=== PATIENT | male | born 1955 | race Caucasian/White ===

== ENCOUNTER → 2016-08-14 | Outpatient (CLI) | payer BC ==
--- NOTE | 2016-08-14 12:58 | MR ---
EXAMINATION TYPE: MR lumbar spine wo con DATE OF EXAM: 08/14/2016 12:51 PM COMPARISON: NONE HISTORY: Lumbago with sciatica, unspecified side TECHNIQUE: Multiplanar, multisequence images of the lumbar spine were acquired. L1-L2: Normal disc appearance without desiccation. No herniation, protrusion or disc bulging. No ca nal stenosis is present. Foramina are patent bilaterally. L2-L3: Normal disc appearance without desiccation. No herniation, protrusion or disc bulging. No ca nal stenosis is present. Foramina are patent bilaterally. L3-L4: Mild decreased signal ossified compatible degenerative disc disease. Mild posterior disc bulge . No evidence for herniation protrusion or central stenosis. Facet joint arthropathy resulting in mil d right greater than left foraminal encroachment. L4-L5: Moderate disc desiccation. 6.7 mm anterolisthesis L4 and L5 secondary to facet joint arthropat hy. Posterior disc bulge effaces the ventral thecal sac. There is right lateral recess stenosis and r ight foraminal encroachment. No definite central stenosis at this time. L5-S1: Moderate to severe disc desiccation with vacuum disc. Grade 1 anterolisthesis L5 on S1 of 3 mm . Moderate broad-based posterocentral disc herniation. Mild effacement ventral thecal sac. Bilateral lateral recess stenosis. No evidence for central stenosis. Bilateral foraminal encroachment left grea ter than right. Severe facet joint arthropathy. Lumbar segments are intact. No paraspinal masses are identified. Conus medullaris has a normal appe arance. IMPRESSION: 1. Multilevel degenerative disc disease. 2. Multilevel disc bulging with varying degrees of bilateral recess stenosis and foraminal encroachme nt. 3. Grade 1 anterolisthesis L4 and L5 and L5 on S1.
== END | disposition home or self-care (01) ==
LOC: RADMRIMAIN 12:05
PROVIDERS: ATTEND Internal Medicine
DX: M48.07 Spinal stenosis, lumbosacral region (principal); M51.27 Other intervertebral disc displacement, lumbosacral region; M43.17 Spondylolisthesis, lumbosacral region; M51.36 Other intervertebral disc degeneration, lumbar region
CPT/HCPCS: 72148

== ENCOUNTER 2016-08-17 07:09 | Emergency (ER) | payer BC ==
[2016-08-17] MEDS ORDERED: DIAZEPAM 5 MG/ML 2 ML SYRINGE IVP STA (07:57)
[2016-08-17] MEDS ORDERED: MORPHINE SULFATE 4 MG/ML SYRINGE IVP STA (07:57)
[2016-08-17] MEDS ORDERED: KETOROLAC 30 MG/ML 1 ML VIAL IVP STA (07:57)
[2016-08-17] MEDS ORDERED: SODIUM CHLORIDE 0.9% 1,000 ML IV STA (07:57)
--- NOTE | 2016-08-17 08:49 | ED ---
General Adult HPI - General Chief complaint: Extremity Injury, Upper Stated complaint: left shoulder injury from fall Time Seen by Provider: 08/17/16 07:27 Source: patient, EMS, RN notes reviewed, old records reviewed Mode of arrival: EMS Limitations: no limitations - History of Present Illness Initial comments: This is a 61-year-old male here status post fall. Patient does have history of significant back disease and lumbar stenosis. Currently a process of getting that treated further. Patient did not S back. Patient got out of bed and is usually does is looking for his walker as he is weak on his feet and fell hyperextending his left arm causing left shoulder pain. Patient continues to have left shoulder pain with deformity. Did not has had no loss of consciousness denies any other complaints. Patient is able to bear weight - Related Data Home Medications Medication Instructions Recorded Confirmed [place]-3 Fatty Acids/Fish Oil [Fish 1 cap PO DAILY 08/17/16 08/17/16 Oil 1,000 mg Softgel] Rosuvastatin [Crestor] 20 mg PO DAILY 08/17/16 08/17/16 Valsartan [Diovan] 160 mg PO DAILY 08/17/16 08/17/16 Vitamin B Complex 1 cap PO DAILY 08/17/16 08/17/16 Allergies Allergy/AdvReac Type Severity Reaction Status Date / Time No Known Allergies Allergy Verified 08/17/16 08:19 Review of Systems ROS Statement: Those systems with pertinent positive or pertinent negative responses have been documented in the HPI. ROS Other: All systems not noted in ROS Statement are negative. Past Medical History Past Medical History: Hyperlipidemia, Hypertension, Musculoskeletal Disorder Additional Past Medical History / Comment(s): spinal stenosis in lumbar region. History of Any Multi-Drug Resistant Organisms: None Reported Additional Past Surgical History / Comment(s): 2 pins in left hip from childhood accident. Past Psychological History: No Psychological Hx Reported Smoking Status: Current every day smoker Past Alcohol Use History: Occasional Past Drug Use History: None Reported General Exam Limitations: no limitations General appearance: alert, in no apparent distress Head exam: Present: atraumatic, normocephalic, normal inspection Eye exam: Present: normal appearance, PERRL, EOMI. Absent: scleral icterus, conjunctival injection, periorbital swelling ENT exam: Present: normal exam, mucous membranes moist Neck exam: Present: normal inspection. Absent: tenderness, meningismus, lymphadenopathy Respiratory exam: Present: normal lung sounds bilaterally. Absent: respiratory distress, wheezes, rales, rhonchi, stridor Cardiovascular Exam: Present: regular rate, normal rhythm, normal heart sounds. Absent: systolic murmur, diastolic murmur, rubs, gallop, clicks GI/Abdominal exam: Present: soft, normal bowel sounds. Absent: distended, tenderness, guarding, rebound, rigid Extremities exam: Present: normal inspection, full ROM, normal capillary refill , other (Left shoulder deformity likely dislocation). Absent: tenderness, pedal edema, joint swelling, calf tenderness Back exam: Present: normal inspection Neurological exam: Present: alert, oriented X3, CN II-XII intact Psychiatric exam: Present: normal affect, normal mood Skin exam: Present: warm, dry, intact, normal color. Absent: rash Course Vital Signs 08/17/16 07:10 Temperature 97.7 F Pulse Rate 84 Respiratory 18 Rate Blood Pressure 139/75 O2 Sat by Pulse 94 L Oximetry - Reevaluation(s) Reevaluation #1: 08/17/16 08:49 Patient's symptoms are improved with pain control at this time, Reevaluation #2: 08/17/16 09:46 At this point patient is awake alert speaking and able to walk Procedures - Orthopedic Joint Reduction Joint #1 Consent Obtained: verbal consent Time Out Performed: Yes Side: left Joint Reduction Location: shoulder Analgesia: procedural sedation Shoulder Technique Used (if applicable): traction/counter-traction Post Reduction X-Ray Obtained: Yes Post Reduction X-Ray Results: reduced Splint Applied: Yes Patient Tolerated Procedure: well - Procedural Sedation Indications: fracture/dislocation reduction ASA Class: I Mallampati Airway Score: 1 Preparation: monitor worker applied, pulse oximeter, capnometry used Fentanyl: IV Fentanyl Dose: 80 Reversal Agents Used: Naloxone Complications: none Interventions: oxygen applied, airway repositioned, use of reversal agent, assist by BVM Patient Tolerated Procedure: well Medical Decision Making - Medical Decision Making 61 male here for evaluation of left shoulder dislocation status post fall, symptoms are improved shoulders relocated and patient can be discharged home - Radiology Data Radiology results: report reviewed (X-ray chest was negative for traumatic injury, x-ray left shoulder positive for dislocation, repeat x-ray shows relocation of left shoulder), image reviewed Disposition Clinical Impression: Dislocation of shoulder region, Dislocation of left shoulder joint, Fall Disposition: HOME SELF-CARE Condition: Good Instructions: Shoulder Dislocation (ED), Moderate Sedation (ED) Referrals: Key Diamond MD [Primary Care Provider] - 1-2 days
--- NOTE | 2016-08-17 08:54 | XR ---
EXAMINATION TYPE: XR pelvis AP view DATE OF EXAM: 08/17/2016 8:49 AM CLINICAL HISTORY: Fall injury with pelvic pain. TECHNIQUE: A single AP view of the pelvis is obtained. COMPARISON: None. FINDINGS: There is no acute fracture/dislocation evident in the pelvis. There are 3 fixating screws through healed fracture left proximal femur. Moderate asymmetric axial joint space loss in the right hip is present. There appears to be asymmetric narrowing of the right sacroiliac joint. Few scattered pelvic phleboliths are seen. IMPRESSION: There is no acute fracture or dislocation in the pelvis.
--- NOTE | 2016-08-17 08:56 | XR ---
EXAMINATION TYPE: XR shoulder complete LT DATE OF EXAM: 08/17/2016 8:49 AM CLINICAL HISTORY: Fall with left shoulder pain and obvious deformity. TECHNIQUE: 2 views of the left shoulder are attempted. COMPARISON: None. FINDINGS: There is inferior medial position of the humeral head relative to glenoid consistent with anterior dislocation. No acute fracture is seen. The acromioclavicular joint space appears within nor mal limits. There are old fracture deformities involving right posterior lateral sixth through eighth ribs. IMPRESSION: There is anterior right shoulder glenohumeral joint dislocation.
--- NOTE | 2016-08-17 08:57 | XR ---
EXAMINATION TYPE: XR chest 1V DATE OF EXAM: 08/17/2016 8:49 AM COMPARISON: NONE HISTORY: Chest pain after fall injury today. TECHNIQUE: Single frontal view of the chest is obtained. FINDINGS: Elevated left hemidiaphragm is seen. There is no focal air space opacity, pleural effusion, or pneumothorax seen. The cardiac silhouette size is within normal limits. There is ectatic thoraci c aorta. There are old left mid posterior rib fractures. There is anterior left shoulder dislocation. IMPRESSION: No acute cardiopulmonary process.
[2016-08-17] MEDS ORDERED: KETAMINE 10 MG/ML 20 ML VIAL IV ONE (09:10)
[2016-08-17] MEDS ORDERED: NALOXONE 0.4 MG/ML 1 ML VIAL IV STA ×2 (09:24→09:36)
[2016-08-17 10:40] VITALS: RESP 16
[2016-08-17 11:06] VITALS: BP 163/89; PULSE 89; TEMP 97.6
--- NOTE | 2016-08-17 11:13 | XR ---
EXAMINATION TYPE: XR shoulder limited LT DATE OF EXAM: 08/17/2016 10:56 AM COMPARISON: 08/17/2016 HISTORY: Reduction TECHNIQUE: One view are submitted. FINDINGS: Alignment is anatomic. Chronic appearing rib deformities noted. Diffuse osteopenia. No acute fracture . IMPRESSION: Post reduction views appears in near-anatomic alignment. Humeral head somewhat high ridin g correlate for rotator cuff tear.
== END 2016-08-17 11:20 | disposition home or self-care (01) ==
LOC: EC 07:09
DX: S43.005A Unspecified dislocation of left shoulder joint, initial encounter (principal); E78.5 Hyperlipidemia, unspecified; I10 Essential (primary) hypertension; F17.200 Nicotine dependence, unspecified, uncomplicated; W18.30XA Fall on same level, unspecified, initial encounter; M48.06 Spinal stenosis, lumbar region; Z79.899 Other long term (current) drug therapy
CPT/HCPCS: 99284; 23650; 96374; 96375; 96361 ×2; 93005; 71010; 72170; 73030; 73020; J2270; J2310; J3360; J1885

== ENCOUNTER → 2016-09-28 | Outpatient (CLI) | payer BC ==
--- NOTE | 2016-09-29 10:28 | MR ---
MR brain and cervical spine with and without contrast history: Pain tumor, idiopathic normal pressure hydrocephalus Multiplanar multisequence and postcontrast images obtained through the brain and cervical spine follo wing 12 cc MultiHance IV No comparisons Brain MRI with and without contrast: There is motion on the exam There is no restricted diffusion. There is no hemorrhage or hydrocephalus. Corpus callosum, pituitary , cervical medullary junction, cerebellopontine angles are unremarkable. No abnormal enhancement foll owing contrast menstruation. There is no hemorrhage or hydrocephalus. Inflammatory changes present wi thin the ethmoid air cells. The orbits show symmetric appearance. There are normal vascular flow void s, normal vascular enhancement. Scattered and confluent hyperintensities are present within the deep white matter on inversion recovery and T2-weighted sequences, there are approximately 40-50 lesions p resent. Mild cortical atrophy is present. IMPRESSION: Probable chronic small vessel ischemic changes, age related atrophy.. Motion on the exam. Follow-up as indicated. Cervical spine MRI with and without contrast: There is motion on the exam. Cervical vertebral bodies show preserved height, alignment, and bone mineral signal. Cervical vertebral bodies show preserved h eight and alignment. There is multilevel spondylosis with endplate discogenic marrow signal change. L oss of disc height and signal present at C3-4, C5-6 and C6-7. Cervical cord signal is difficult to as sess with certainty. C2-3: Right posterior paracentral extension of endplate disc complex causes foraminal encroachment, n o significant central stenosis. C3-4: Posterior extension of endplate disc complex, posterior right base disc bulge present causing a nterior mass effect on the cervical cord. Suspect there is bilateral foraminal encroachment. Moderate to severe spinal stenosis is suspected. C4-5: Posterior broad-based disc bulge causes mild anterior mass effect on the thecal sac. Right-side d foraminal encroachment present due to uncovertebral joint hypertrophy and facet arthropathy. C5-6: Posterior extension of endplate disc complex results in moderate canal stenosis. Foraminal encr oachment is present bilaterally. C6-7: Posterior extension of endplate disc complex causes anterior mass effect on the thecal sac, mil d spinal stenosis. Bilateral foraminal encroachment is present due to lateral extension endplate disc complex. C7-T1: Within normal limits No abnormal enhancement. IMPRESSION: Findings suggest severe spinal stenosis greatest at C3-4. Degenerative disc disease, disc herniation C3-4. There is motion on the exam. Limitations are present.
== END | disposition home or self-care (01) ==
LOC: RADMRIMAIN 16:55
PROVIDERS: ATTEND Psychiatry & Neurology Neurology
DX: M50.10 Cervical disc disorder with radiculopathy, unspecified cervical region (principal); M50.11 Cervical disc disorder with radiculopathy, high cervical region; D49.6 Neoplasm of unspecified behavior of brain; G91.2 (Idiopathic) normal pressure hydrocephalus
CPT/HCPCS: 70553; 72156; A9577

== ENCOUNTER → 2016-10-27 | Outpatient (CLI) | payer BC ==
--- NOTE | 2016-10-27 18:51 | MR ---
EXAMINATION TYPE: MR thoracic spine wo con DATE OF EXAM: 10/27/2016 COMPARISON: NONE HISTORY: 61-year-old male Ascending spinal disease and stenosis, mid back pain TECHNIQUE: Multiplanar, multisequence images of the thoracic spine were obtained without IV contrast. FINDINGS: Multilevel spinal stenoses within the cervical spine reported on 09/28/2016, severe at C3-C4 seen on th e counting series. Thoracic spine shows accentuated midthoracic kyphosis. Vertebral body heights are preserved. Alignmen t is maintained. No suspicious bone marrow replacement. Multilevel mild disc desiccation and mild anterior spondylosis throughout. At T10-T11, there is a central disc herniation. This may be a extrusion with small amount of inferior migration of disc material. This focally abuts and indents the ventral cord but does not cause signi ficant spinal canal stenosis. At T7-T8, there is a tiny left paracentral protrusion without spinal canal stenosis. No significant neuroforaminal stenoses are identified. Normal course and signal intensity of the thoracic cord. Conus medullaris is normal. No prevertebral or paravertebral soft tissue abnormality seen. IMPRESSION: 1. Mild multilevel degenerative disc disease. 2. Accentuated mid thoracic kyphosis with preserved alignment. 3. Central disc herniation at T10-T11, possible central extrusion with small amount of inferior migra tion. This abuts and focally indents the ventral cord but does not cause significant spinal canal arlen nosis or cord compression. 4. No significant neuroforaminal stenosis. 5. Significant canal stenosis within the cervical spine described on report of 09/28/2016.
== END | disposition home or self-care (01) ==
LOC: RADMRIMAIN 12:50
PROVIDERS: ATTEND Neurological Surgery
DX: M51.24 Other intervertebral disc displacement, thoracic region (principal); M51.34 Other intervertebral disc degeneration, thoracic region
CPT/HCPCS: 72146

== ENCOUNTER 2019-02-03 13:06 | Emergency (ER) | payer MEDICARE, BC ==
[2019-02-03 13:21] VITALS: RESP 18; TEMP 97.6
[2019-02-03] MEDS ORDERED: DIAZEPAM 5 MG/ML 2 ML INJ IVP STA (14:15)
[2019-02-03 15:12] LABS: ALT 13 U/L (21-72); AST 23 U/L (17-59); African American GFR (CKD) >90 (>60 ml/min/1.73 sqM); Albumin 4.1 g/dL (3.5-5.0); Alkaline Phosphatase 100 U/L (38-126); Anion Gap 6 mmol/L; Blood Urea Nitrogen 11 mg/dL (9-20); Calcium 9.7 mg/dL (8.4-10.2); Carbon Dioxide 33 mmol/L (22-30); Chloride 99 mmol/L (98-107); Glucose 95 mg/dL (74-99); Potassium 4.2 mmol/L (3.5-5.1); Sodium 138 mmol/L (137-145); Total Bilirubin 0.5 mg/dL (0.2-1.3)
[2019-02-03 15:18] LABS: Basophils % (A) 1 %; Eosinophils # (A) 0.1 k/uL (0-0.7); Eosinophils % (A) 1 %; HCT 43.4 % (39.0-53.0); HGB 14.6 gm/dL (13.0-17.5); Lymphocytes # (A) 1.2 k/uL (1.0-4.8); Lymphocytes % (A) 19 %; MCH 33.2 pg (25.0-35.0); MCHC 33.7 g/dL (31.0-37.0); MCV 98.4 fL (80.0-100.0); Mean Platelet Volume 6.4; Monocytes # (A) 0.4 k/uL (0-1.0); Monocytes % (A) 7 %; Neutrophils # (A) 4.4 k/uL (1.3-7.7); Neutrophils % (A) 71 %; Platelet Count 223 k/uL (150-450); RBC 4.41 m/uL (4.30-5.90); WBC 6.3 k/uL (3.8-10.6)
--- NOTE | 2019-02-03 15:44 | CT ---
EXAMINATION TYPE: CT lumbar spine wo con DATE OF EXAM: 02/03/2019 COMPARISON: Lumbar MRI 08/14/2016 HISTORY: Leg weakness and pain. Post pain pump placement and removal CT DLP: 686.2 mGycm Automated exposure control for dose reduction was used. An unenhanced CT of the lumbar spine was performed. Bone and soft tissue window settings are submitt ed as well as coronal and sagittal reconstructions. FINDINGS: Noncontrast exam. Lumbar vertebral bodies show stable height and alignment, there is an anterolisthes is grade 1 L4-5. Loss of disc height hasn't L3-4, L4-5, there is multilevel spondylosis. Bone mineral ization is reduced. Bladder wall thickening is indeterminate, may be due to outlet obstruction. Punct ate focus of possible air attenuation present at the level posterior to the L4-5 disc space likely re lated to patient's procedure. L1-L2: Minimal disc bulge causes only slight anterior mass effect on the thecal sac. No significant c entral stenosis or foraminal encroachment. L2-L3: Posterior broad-based disc bulge causes mild anterior mass effect on the thecal sac. No signif icant foraminal encroachment or central stenosis. L3-L4: Facet arthropathy with hypertrophy of the ligamentum flavum causes some posterior lateral mass effect on the thecal sac. Minimal disc bulge causes slight anterior mass effect on the thecal sac. N o significant central stenosis or foraminal encroachment. L4-L5: Listhesis is present with bilateral facet arthropathy, circumferential disc bulge encroaching upon the bilateral foramina. There is mild central stenosis present. L5-S1: Posterior disc bulge is present causing anterior mass effect on the thecal sac and likely the proximal S1 nerve roots. Circumferential extension endplate disc complex encroaches on the foramina l eft greater than right. Only mild central stenosis. IMPRESSION: No paraspinal masses are identified. Lumbar segments are intact. Degenerative disc disease, facet ar thropathy, spinal curvature, spondylolisthesis. Findings are similar to prior lumbar MRI. Small focus of low-attenuation may be procedural.
--- NOTE | 2019-02-03 16:21 | ED ---
General Adult HPI - General Chief complaint: Extremity Problem,Nontraumatic Stated complaint: Leg stiffness Time Seen by Provider: 02/03/19 13:15 Source: patient, EMS, RN notes reviewed Mode of arrival: EMS Limitations: no limitations - History of Present Illness Initial comments: This is a 63-year-old male who presents emergency Department because both of his legs are much stiffer than normal. Patient states yesterday he was in for a trial test of baclofen. Patient had intrathecal injection of baclofen and after he went home he was extremely stiff to the point where his neighbor headache area at the house and this morning he was unable to get up and ambulated at all. According to the family he's excessively stiff more so than his baseline. Patient is not many many significant pain. Patient denies any numbness. Patient states he's had no fevers he is just extremely stiff and unable to move on his own. Patient states he did miss his oral doses during the day of baclofen but he thought that was okay since he was being injected with baclofen. Patient states his movement currently is a little better than it was earlier this morning when he was unable to get out of bed even with assistance. - Related Data Home Medications Medication Instructions Recorded Confirmed Acetaminophen Tab [Tylenol Tab] 1,000 mg PO Q6H PRN 02/03/19 02/03/19 Baclofen [Lioresal] 20 mg PO QID 02/03/19 02/03/19 Ibuprofen [Motrin Ib] 400 mg PO Q6H PRN 02/03/19 02/03/19 Rosuvastatin [Crestor] 20 mg PO HS 02/03/19 02/03/19 Tamsulosin HCl [Flomax] 0.4 mg PO HS 02/03/19 02/03/19 Valsartan/Hydrochlorothiazide 1 tab PO DAILY 02/03/19 02/03/19 [Valsartan-Hctz 160-25 mg Tab] Previous Rx's Medication Instructions Recorded Diazepam [Valium] 5 mg PO BID #14 tab 02/03/19 Allergies Allergy/AdvReac Type Severity Reaction Status Date / Time No Known Allergies Allergy Verified 02/03/19 14:21 Review of Systems ROS Statement: Those systems with pertinent positive or pertinent negative responses have been documented in the HPI. ROS Other: All systems not noted in ROS Statement are negative. Past Medical History Past Medical History: Hyperlipidemia, Hypertension, Musculoskeletal Disorder Additional Past Medical History / Comment(s): spinal stenosis in lumbar region. History of Any Multi-Drug Resistant Organisms: None Reported Past Surgical History: Back Surgery Additional Past Surgical History / Comment(s): 2 pins in left hip from childhood accident. neck surgery Past Psychological History: No Psychological Hx Reported Smoking Status: Former smoker Past Alcohol Use History: Occasional Past Drug Use History: None Reported General Exam - General Exam Comments Initial Comments: GENERAL: Patient is well-developed and well-nourished. Patient is nontoxic and well- hydrated and is in no distress. ENT: Neck is soft and supple. No significant lymphadenopathy is noted. Oropharynx is clear. Moist mucous membranes. Neck has full range of motion without e liciting any pain. EYES: The sclera were anicteric and conjunctiva were pink and moist. Extraocular movements were intact and pupils were equal round and reactive to light. Eyelids were unremarkable. PULMONARY: Unlabored respirations. Good breath sounds bilaterally. No audible rales rhonchi or wheezing was noted. CARDIOVASCULAR: There is a regular rate and rhythm without any murmurs gallops or rubs. ABDOMEN: Soft and nontender with normal bowel sounds. SKIN: Skin is clear with no lesions or rashes and otherwise unremarkable. NEUROLOGIC: Patient is alert and oriented x3. Cranial nerves II through XII are grossly intact. Motor and sensory are also intact. Normal speech, volume and content. Symmetrical smile. MUSCULOSKELETAL: Both patient's legs are extremely stiff but he is able to bend them at about 45 at the knee but this is not as good as his baseline according to the patient. LYMPHATICS: No significant lymphadenopathy is noted PSYCHIATRIC: Normal psychiatric evaluation. Limitations: no limitations Course Vital Signs 02/03/19 02/03/19 02/03/19 13:11 14:00 15:00 Temperature 97.6 F Pulse Rate 100 86 75 Respiratory 18 18 18 Rate Blood Pressure 159/104 163/91 143/92 O2 Sat by Pulse 94 L 93 L 96 Oximetry Medical Decision Making - Medical Decision Making I gave the patient 3 mg of Valium and did a CAT scan of his lower spine. Lumbar spine CT showed no acute abnormality from the procedure. I spoke with Dr. Hernandez his neurologist and he believes the extra stiffness was because the patient had skipped a dose of baclofen and probably the irritation from the intrathecal injections exacerbated stiffness. The neurologist was comfortable with the patient going home and following up. - Lab Data Result diagrams: 02/03/19 14:54 02/03/19 14:54 Lab Results 02/03/19 02/03/19 Range/Units 14:54 14:54 WBC 6.3 (3.8-10.6) k/uL RBC 4.41 (4.30-5.90) m/uL Hgb 14.6 (13.0-17.5) gm/dL Hct 43.4 (39.0-53.0) % MCV 98.4 (80.0-100.0) fL MCH 33.2 (25.0-35.0) pg MCHC 33.7 (31.0-37.0) g/dL RDW 12.0 (11.5-15.5) % Plt Count 223 (150-450) k/uL Neutrophils % 71 % Lymphocytes % 19 % Monocytes % 7 % Eosinophils % 1 % Basophils % 1 % Neutrophils # 4.4 (1.3-7.7) k/uL Lymphocytes # 1.2 (1.0-4.8) k/uL Monocytes # 0.4 (0-1.0) k/uL Eosinophils # 0.1 (0-0.7) k/uL Basophils # 0.0 (0-0.2) k/uL Sodium 138 (137-145) mmol/L Potassium 4.2 (3.5-5.1) mmol/L Chloride 99 (98-107) mmol/L Carbon Dioxide 33 H (22-30) mmol/L Anion Gap 6 mmol/L BUN 11 (9-20) mg/dL Creatinine 0.57 L (0.66-1.25) mg/dL Est GFR (CKD-EPI)AfAm >90 (>60 ml/min/1.73 sqM) Est GFR (CKD-EPI)NonAf >90 (>60 ml/min/1.73 sqM) Glucose 95 (74-99) mg/dL Calcium 9.7 (8.4-10.2) mg/dL Total Bilirubin 0.5 (0.2-1.3) mg/dL AST 23 (17-59) U/L ALT 13 L (21-72) U/L Alkaline Phosphatase 100 (38-126) U/L Total Protein 7.0 (6.3-8.2) g/dL Albumin 4.1 (3.5-5.0) g/dL Disposition Clinical Impression: Muscle spasm of both lower legs Disposition: HOME SELF-CARE Condition: Good Prescriptions: Diazepam [Valium] 5 mg PO BID #14 tab Is patient prescribed a controlled substance at d/c from ED?: Yes When asked, does pt state using other controlled substances?: Yes If prescribed controlled substance>3 days was MAPS reviewed?: Prescribed <3 Days Referrals: Key Diamond MD [Primary Care Provider] - 1-2 days Time of Disposition: 16:19
[2019-02-03 17:21] VITALS: BP 166/97; PULSE 77
== END 2019-02-03 17:21 | disposition home or self-care (01) ==
LOC: EC 13:06
DX: M62.838 Other muscle spasm (principal); I10 Essential (primary) hypertension; E78.5 Hyperlipidemia, unspecified; Z79.899 Other long term (current) drug therapy; Z87.891 Personal history of nicotine dependence
CPT/HCPCS: 36415; 80053; 85025; 72131; 99284; 96374; J3360